=== PATIENT | male | born 1990 | race Caucasian/White ===

== ENCOUNTER 2017-09-26 08:10 | Emergency (ER) | payer MEDICARE, OTHER ==
[~2017-09-26] VITALS: Ht 165.1 cm; Wt 50.9 kg
[2017-09-26 08:15] VITALS: BP 137/89
[2017-09-26] MEDS ORDERED: chlordiazePOXIDE 25mg capsule PO ONE (08:35)
[2017-09-26] MEDS ORDERED: PHE12.5T PO (08:36)
[2017-09-26] MEDS ORDERED: CHLO25CA10 PO (08:36)
== END 2017-09-26 08:45 | disposition home or self-care (01) ==
LOC: ER 08:11
DX: F10.10 Alcohol abuse, uncomplicated (principal); F12.90 Cannabis use, unspecified, uncomplicated; Z87.442 Personal history of urinary calculi; Z79.899 Other long term (current) drug therapy
CPT/HCPCS: 99283